=== PATIENT | male | born 1955 | race Caucasian/White ===

== ENCOUNTER → 2016-11-12 | Outpatient (CLI) | payer BC ==
[~2016-11-12] MED LIST: ACTOPLUS MET1 TABLET PO; ASPIR-LOW81 M1 PO; CRESTOR10 MG; FENOFIBRATE200 M1 PO; GLIMEPIRIDE4 MG PO; JANUMET 50/11 TABLET PO; LISINOPRIL10 MG PO; PROAIR RESPICL90 MCG IH; SYMBICORT60 INHALAT IH; TYLENOL EXTRA500 MG PO
[2016-11-12 09:19] LABS: COMMENTS - BLOOD GASES NAC+; FI02 21 %; HEMOGLOBIN 15.8 (12.5-16.6); PCO2 48 mm Hg (35-45); SITE LR; pH 7.39 (7.35-7.45)
[2016-11-12 09:20] LABS: BASE EXCESS 3.1 mEq/L (-3 to +3); BICARBONATE 29.1 mEq/L (22-26); CARBOXY HGB 1.6 % (0-5); PO2 79 mm Hg (80-100)
== END | disposition home or self-care (01) ==
LOC: RES 08:37
PROVIDERS: Thoracic Surgery (Cardiothoracic Vascular Surgery)
DX: J98.8 Other specified respiratory disorders (principal); R94.2 Abnormal results of pulmonary function studies
CPT/HCPCS: 36600; 82803; 94060; 94726; 94729

== ENCOUNTER → 2016-12-09 | Outpatient (CLI) | payer BC ==
[~2016-12-09] VITALS: Ht 175.3 cm; Wt 111.4 kg
[2016-12-09 09:33] LABS: HEMATOCRIT 43.2 % (38.0-50.0); MCH 29.2 PG (29.0-34.0); MCHC 34.7 G/DL (30.0-36.0); MCV 84.2 FL (86-99); MEAN PLAT.VOLUME 11.8 uM^3 (9.0-12.4); PLATELET COUNT 171 K/uL (156-360); RBC DIS.WIDTH-CV 12.3 % (11.8-14.6); RBC DIS.WIDTH-SD 37.4 % (39-53); RED BLOOD COUNT 5.13 M/uL (4.00-5.50); WHITE BLOOD COUNT 5.6 K/uL (4.1-10.2)
[2016-12-09 09:42] LABS: INTER. NORMALIZED RATIO 1.1; PROTHROMBIN TIME 10.7 (9.2-11.2); PTT 26.4 (25-32)
[2016-12-09 09:55] LABS: POINT-OF-CARE METER ID UU14174212
== END | disposition home or self-care (01) ==
LOC: EDSTATUS 11-18 09:00 → OPR 11-18 09:00
PROVIDERS: Radiology Diagnostic Radiology; Thoracic Surgery (Cardiothoracic Vascular Surgery)
PROC: 0BBF3ZX Excision of Right Lower Lung Lobe, Percutaneous Approach, Diagnostic (ICD-10-PCS; principal; 2016-12-09)
DX: C34.31 Malignant neoplasm of lower lobe, right bronchus or lung (principal); J44.9 Chronic obstructive pulmonary disease, unspecified; Z87.891 Personal history of nicotine dependence; E11.9 Type 2 diabetes mellitus without complications; I10 Essential (primary) hypertension; M54.5 Low back pain; F41.1 Generalized anxiety disorder; Z79.82 Long term (current) use of aspirin; Z79.84 Long term (current) use of oral hypoglycemic drugs; Z83.3 Family history of diabetes mellitus; Z82.3 Family history of stroke
CPT/HCPCS: 71010; 77012; 82948; 85027; 85610; 85730; 88305; 88341 TC; 88342 TC; J3010

== ENCOUNTER 2017-01-06 07:20 | Day surgery (SDC) | payer BC ==
[~2017-01-06] VITALS: Ht 175.3 cm; Wt 115.6 kg
[~2017-01-06 07:20] MED LIST changes: +AMARYL4 MG PO; +ASPIRIN81 M2 PO; +CRESTOR10 MG PO
[2017-01-06 07:46] VITALS: BP 130/62
[2017-01-06 08:16] LABS: EOSINOPHIL (%) 1.8 % (0-5); EOSINOPHIL COUNT 0.1 K/uL (0-0.3); HEMATOCRIT 40.2 % (38.0-50.0); IMMATURE GRANULOCYTE (%) 0.5 % (0.0-0.7); INSTRUMENT ABS NEUTROPHIL CT 3.1 K/uL; LYMPHOCYTE COUNT 1.9 K/uL (1.0-2.8); MCH 29.4 PG (29.0-34.0); MCHC 34.8 G/DL (30.0-36.0); MCV 84.3 FL (86-99); MEAN PLAT.VOLUME 12.1 uM^3 (9.0-12.4); MONOCYTE (%) 8.2 % (3-12); MONOCYTE COUNT 0.5 K/uL (0-0.8); NEUTROPHIL (%) 55.3 % (45-76); NEUTROPHIL COUNT 3.1 K/uL (1.8-6.4); PLATELET COUNT 176 K/uL (156-360); RBC DIS.WIDTH-SD 36.4 % (39-53); RED BLOOD COUNT 4.77 M/uL (4.00-5.50); WHITE BLOOD COUNT 5.5 K/uL (4.1-10.2)
[2017-01-06 08:25] LABS: INTER. NORMALIZED RATIO 1.1; PROTHROMBIN TIME 10.8 (9.2-11.2)
[2017-01-06 08:42] LABS: ALKALINE PHOSPHATASE 38 IU/L (3-129); ANION GAP 9 MEQ/L (2-14); CHLORIDE 104 MEQ/L (99-109); GFR ESTIMATE (CALCULATED) > 59 mL/min/; GLUCOSE 258 mg/dL (70-99); POTASSIUM 4.1 MEQ/L (3.7-5.4); SAMPLE HEMOLYSIS CHECK 0; SAMPLE ICTERIC CHECK 0; SAMPLE LIPEMIA CHECK 0; SODIUM 136 MEQ/L (136-147); TOTAL BILIRUBIN 0.4 MG/DL (0.0-1.0); UREA NITROGEN (BUN) 19 mg/dL (9-23)
[2017-01-06 10:47] LABS: POINT-OF-CARE METER ID UU13113675
[2017-01-06 12:10] VITALS: BP 119/83
[2017-01-06 13:21] VITALS: BP 126/61
== END 2017-01-06 13:30 | disposition home or self-care (01) ==
LOC: SDC 07:20
PROVIDERS: Thoracic Surgery (Cardiothoracic Vascular Surgery)
PROC: 07B74ZX Excision of Thorax Lymphatic, Percutaneous Endoscopic Approach, Diagnostic (ICD-10-PCS; principal; 2017-01-06)
DX: C34.31 Malignant neoplasm of lower lobe, right bronchus or lung (principal); Z85.3 Personal history of malignant neoplasm of breast; Z83.3 Family history of diabetes mellitus; Z82.49 Family history of ischemic heart disease and other diseases of the circulatory system; F41.9 Anxiety disorder, unspecified; M51.16 Intervertebral disc disorders with radiculopathy, lumbar region; G96.8 Other specified disorders of central nervous system
CPT/HCPCS: 80053; 82948; 85025; 85610; 86900; 86901; 88305; 94640; 94640 76; J0330; J0690; J1100; J1170; J1885; J2250; J2405; J2710

== ENCOUNTER 2017-02-16 22:31 | Inpatient (IN) | payer BC ==
[~2017-02-16] VITALS: Ht 175.3 cm; Wt 108.7 kg
[~2017-02-16 22:31] MED LIST changes: -AMARYL4 MG PO; +TRULICITY1.5 MG/0.5 SC
[2017-02-17 07:23] VITALS: BP 125/77
[2017-02-17 07:25] LABS: POINT-OF-CARE METER ID UU13113694
[2017-02-17 07:43] LABS: PROTHROMBIN TIME 11.4 SEC (10.2-12.9)
[2017-02-17 12:20] LABS: POINT-OF-CARE METER ID UU13113675
[2017-02-17 14:10] LABS: POINT-OF-CARE METER ID UU13113675
[2017-02-17 16:00] VITALS: BP 92/58
[2017-02-17 17:10] LABS: POINT-OF-CARE METER ID UU13113748
[2017-02-17 18:00] VITALS: BP 102/59
[2017-02-17 20:00] VITALS: BP 96/57
[2017-02-17 22:00] VITALS: BP 98/58
[2017-02-17 22:53] LABS: POINT-OF-CARE METER ID UU13113748; POINT-OF-CARE USER ID PHATLC
[2017-02-18] VITALS (9 sets, daily range): BP systolic 87–131; BP diastolic 52–68
[2017-02-18 06:57] LABS: HEMATOCRIT 38.2 % (38.0-50.0); MCH 28.7 PG (29.0-34.0); MEAN PLAT.VOLUME 12.7 uM^3 (9.0-12.4); RBC DIS.WIDTH-CV 13.1 % (11.8-14.6); RED BLOOD COUNT 4.39 M/uL (4.00-5.50); WHITE BLOOD COUNT 8.8 K/uL (4.1-10.2)
[2017-02-18 07:09] LABS: PLATELET COUNT 134 K/uL (156-360)
[2017-02-18 07:25] LABS: ANION GAP 8 MEQ/L (2-14); CHLORIDE 104 MEQ/L (99-109); GFR ESTIMATE (CALCULATED) > 59 mL/min/; GLUCOSE 281 mg/dL (70-99); POTASSIUM 4.9 MEQ/L (3.7-5.4); SAMPLE HEMOLYSIS CHECK 0; SAMPLE ICTERIC CHECK 0; SAMPLE LIPEMIA CHECK 0; SODIUM 138 MEQ/L (136-147); UREA NITROGEN (BUN) 16 mg/dL (9-23)
[2017-02-18 08:13] LABS: POINT-OF-CARE METER ID UU14208751
[2017-02-18 12:05] LABS: POINT-OF-CARE METER ID UU14208751
[2017-02-18 16:39] LABS: POINT-OF-CARE METER ID UU14162636
[2017-02-18 21:59] LABS: POINT-OF-CARE METER ID UU14208751
[2017-02-19] VITALS (7 sets, daily range): BP systolic 113–145; BP diastolic 59–75
[2017-02-19 05:54] LABS: HEMATOCRIT 35.9 % (38.0-50.0); MCHC 32.3 G/DL (30.0-36.0); MCV 86.7 FL (86-99); MEAN PLAT.VOLUME 12.4 uM^3 (9.0-12.4); PLATELET COUNT 126 K/uL (156-360); RBC DIS.WIDTH-CV 12.8 % (11.8-14.6); RBC DIS.WIDTH-SD 40.6 % (39-53); RED BLOOD COUNT 4.14 M/uL (4.00-5.50); WHITE BLOOD COUNT 9.8 K/uL (4.1-10.2)
[2017-02-19 06:22] LABS: ANION GAP 12 MEQ/L (2-14); CHLORIDE 104 MEQ/L (99-109); GFR ESTIMATE (CALCULATED) > 59 mL/min/; GLUCOSE 221 mg/dL (70-99); POTASSIUM 4.6 MEQ/L (3.7-5.4); SAMPLE HEMOLYSIS CHECK 0; SAMPLE ICTERIC CHECK 0; SAMPLE LIPEMIA CHECK 0; SODIUM 140 MEQ/L (136-147); UREA NITROGEN (BUN) 19 mg/dL (9-23)
[2017-02-19 08:05] LABS: POINT-OF-CARE METER ID UU13113731
[2017-02-19 11:38] LABS: POINT-OF-CARE METER ID UU13113731
[2017-02-19 17:39] LABS: POINT-OF-CARE METER ID UU14174217
[2017-02-19 21:35] LABS: POINT-OF-CARE METER ID UU14174217
[2017-02-20] VITALS (13 sets, daily range): BP systolic 83–129; BP diastolic 50–73
[2017-02-20 06:12] LABS: EOSINOPHIL (%) 0.8 % (0-5); EOSINOPHIL COUNT 0.1 K/uL (0-0.3); HEMATOCRIT 35.7 % (38.0-50.0); IMMATURE GRANULOCYTE (%) 0.9 % (0.0-0.7); IMMATURE GRANULOCYTE COUNT 0.1 K/uL; INSTRUMENT ABS NEUTROPHIL CT 6.5 K/uL; LYMPHOCYTE COUNT 1.4 K/uL (1.0-2.8); MCH 28.7 PG (29.0-34.0); MCHC 32.8 G/DL (30.0-36.0); MCV 87.5 FL (86-99); MEAN PLAT.VOLUME 12.4 uM^3 (9.0-12.4); MONOCYTE (%) 9.1 % (3-12); MONOCYTE COUNT 0.8 K/uL (0-0.8); NEUTROPHIL (%) 73.2 % (45-76); NEUTROPHIL COUNT 6.5 K/uL (1.8-6.4); PLATELET COUNT 135 K/uL (156-360); RBC DIS.WIDTH-CV 12.8 % (11.8-14.6); RBC DIS.WIDTH-SD 41.4 % (39-53); RED BLOOD COUNT 4.08 M/uL (4.00-5.50); WHITE BLOOD COUNT 8.8 K/uL (4.1-10.2)
[2017-02-20 06:41] LABS: ANION GAP 7 MEQ/L (2-14); CHLORIDE 101 MEQ/L (99-109); GFR ESTIMATE (CALCULATED) > 59 mL/min/; GLUCOSE 195 mg/dL (70-99); POTASSIUM 4.7 MEQ/L (3.7-5.4); SAMPLE HEMOLYSIS CHECK 0; SAMPLE ICTERIC CHECK 0; SAMPLE LIPEMIA CHECK 0; SODIUM 139 MEQ/L (136-147); UREA NITROGEN (BUN) 21 mg/dL (9-23)
[2017-02-20 08:40] LABS: POINT-OF-CARE METER ID UU13113731; POINT-OF-CARE USER ID AGYTJR
[2017-02-20 12:33] LABS: POINT-OF-CARE METER ID UU13113731; POINT-OF-CARE USER ID AGYTJR
[2017-02-20 18:08] LABS: POINT-OF-CARE METER ID UU13113731; POINT-OF-CARE USER ID AGYTJR
[2017-02-20 22:45] LABS: POINT-OF-CARE METER ID UU13113731
[2017-02-21] VITALS (12 sets, daily range): BP systolic 96–136; BP diastolic 51–73
[2017-02-21 08:32] LABS: POINT-OF-CARE METER ID UU13113748; POINT-OF-CARE USER ID AGYTJR
[2017-02-21 13:17] LABS: POINT-OF-CARE METER ID UU14162636; POINT-OF-CARE USER ID AGYTJR
[2017-02-21 17:41] LABS: POINT-OF-CARE METER ID UU14174217; POINT-OF-CARE USER ID AGYTJR
[2017-02-21 20:55] LABS: POINT-OF-CARE METER ID UU14162636
[2017-02-22] VITALS (8 sets, daily range): BP systolic 99–124; BP diastolic 55–70
[2017-02-22 08:16] LABS: POINT-OF-CARE METER ID UU13113731
[2017-02-22 12:13] LABS: POINT-OF-CARE METER ID UU13113731
[2017-02-22 17:52] LABS: POINT-OF-CARE METER ID UU14174217
[2017-02-22 20:35] LABS: POINT-OF-CARE METER ID UU13113731; POINT-OF-CARE USER ID PHATLC
[2017-02-22 23:25] LABS: POINT-OF-CARE METER ID UU14174217; POINT-OF-CARE USER ID PHATLC
[2017-02-23] VITALS: BP 111/58
[2017-02-23 04:00] VITALS: BP 107/61
[2017-02-23 05:39] LABS: HEMATOCRIT 34.8 % (38.0-50.0); MCH 27.5 PG (29.0-34.0); MCHC 31.9 G/DL (30.0-36.0); MCV 86.4 FL (86-99); MEAN PLAT.VOLUME 11.8 uM^3 (9.0-12.4); RBC DIS.WIDTH-CV 12.5 % (11.8-14.6); RBC DIS.WIDTH-SD 39.8 % (39-53); RED BLOOD COUNT 4.03 M/uL (4.00-5.50); WHITE BLOOD COUNT 6.9 K/uL (4.1-10.2)
[2017-02-23 05:40] LABS: PLATELET COUNT 233 K/uL (156-360)
[2017-02-23 05:56] LABS: ANION GAP 8 MEQ/L (2-14); CHLORIDE 101 MEQ/L (99-109); GFR ESTIMATE (CALCULATED) > 59 mL/min/; GLUCOSE 175 mg/dL (70-99); POTASSIUM 4.3 MEQ/L (3.7-5.4); SAMPLE HEMOLYSIS CHECK 0; SAMPLE ICTERIC CHECK 0; SAMPLE LIPEMIA CHECK 0; SODIUM 139 MEQ/L (136-147); UREA NITROGEN (BUN) 16 mg/dL (9-23)
[2017-02-23 08:30] VITALS: BP 120/72
[2017-02-23] MEDS ORDERED: DIGOXIN250 MCG PO (11:34)
[2017-02-23] MEDS ORDERED: DOCUSATE SODIU100 MG PO (11:34)
[2017-02-23] MEDS ORDERED: ENDOCET 5-3251 EACH PO (11:34)
[2017-02-23] MEDS ORDERED: METOPROLOL SUCC50 MG PO (11:39)
[2017-02-23 12:30] VITALS: BP 119/54
[2017-02-23 12:37] LABS: POINT-OF-CARE METER ID UU13113731
== END 2017-02-23 16:39 | disposition home or self-care (01) | DRG 165 ==
LOC: ENRESERV 22:31 → 4WEST 02-17 06:29 → 2SOUTH 02-17 06:29 → ENRESERV 02-17 12:46 → 2SOUTH 02-17 13:26 → 4WEST 02-17 15:12
PROVIDERS: Family Medicine Sports Medicine; Thoracic Surgery (Cardiothoracic Vascular Surgery)
PROC: 0BTF0ZZ Resection of Right Lower Lung Lobe, Open Approach (ICD-10-PCS; principal; 2017-02-17)
DX: C34.31 Malignant neoplasm of lower lobe, right bronchus or lung (principal); I10 Essential (primary) hypertension; J44.9 Chronic obstructive pulmonary disease, unspecified; E11.9 Type 2 diabetes mellitus without complications; I25.10 Atherosclerotic heart disease of native coronary artery without angina pectoris; E78.5 Hyperlipidemia, unspecified; Z87.891 Personal history of nicotine dependence; Z68.37 Body mass index [BMI] 37.0-37.9, adult; Z90.49 Acquired absence of other specified parts of digestive tract
CPT/HCPCS: 71010; 71020; 80048; 82948; 85025; 85027; 85610; 86900; 86901; 86920; 87641; 88300; 88305; 88309; 94010; 94640; 94640 76; 94760; 94799; 97530 GO; 99202; J0171; J0330; J0690; J1100; J1160; J1170; J1200; J1644; J1815; J1885; J2250; J2405; J2710; J3010; J7050; J7120; S0020

== ENCOUNTER → 2017-08-02 | Outpatient (CLI) | payer BC, OTHER ==
[~2017-08-02] MED LIST changes: +DIGOXIN250 MCG PO; +DOCUSATE SODIU100 MG PO; +ENDOCET 5-3251 EACH PO; +METOPROLOL SUCC50 MG PO
== END | disposition home or self-care (01) ==
LOC: CDC 08:53
DX: Z01.810 Encounter for preprocedural cardiovascular examination (principal); R91.8 Other nonspecific abnormal finding of lung field; C34.90 Malignant neoplasm of unspecified part of unspecified bronchus or lung
CPT/HCPCS: 93000

== ENCOUNTER 2017-08-11 10:13 | Day surgery (SDC) | payer BC, OTHER ==
[~2017-08-11] VITALS: Ht 175.3 cm; Wt 101.2 kg
[~2017-08-11 10:13] MED LIST changes: +LANTUS 3 M100 UNITS1 SC
[2017-08-11 10:53] VITALS: BP 124/68
[2017-08-11 13:23] VITALS: BP 119/72
[2017-08-11 14:20] VITALS: BP 111/57
== END 2017-08-11 14:20 | disposition home or self-care (01) ==
LOC: SDC 10:13
PROVIDERS: Thoracic Surgery (Cardiothoracic Vascular Surgery)
PROC: 0BB88ZX Excision of Left Upper Lobe Bronchus, Via Natural or Artificial Opening Endoscopic, Diagnostic (ICD-10-PCS; principal; 2017-08-11)
PROC: 0B9G8ZX Drainage of Left Upper Lung Lobe, Via Natural or Artificial Opening Endoscopic, Diagnostic (ICD-10-PCS; principal; 2017-08-11)
DX: C34.12 Malignant neoplasm of upper lobe, left bronchus or lung (principal); I25.10 Atherosclerotic heart disease of native coronary artery without angina pectoris; J44.9 Chronic obstructive pulmonary disease, unspecified; E11.9 Type 2 diabetes mellitus without complications; I10 Essential (primary) hypertension; E78.5 Hyperlipidemia, unspecified; Z87.891 Personal history of nicotine dependence; Z79.82 Long term (current) use of aspirin; Z79.4 Long term (current) use of insulin
CPT/HCPCS: 82948; 86850; 86900; 86901; 88108; 88305; 88341 TC; 88342 TC; J0171; J0690; J2250; J2405; J3010

== ENCOUNTER → 2017-08-26 | Outpatient (CLI) | payer BC, OTHER ==
[2017-08-26 09:29] LABS: BASE EXCESS 1.7 mEq/L (-3 to +3); BICARBONATE 25.8 mEq/L (22-26); CARBOXY HGB 1.4 % (0-5); COMMENTS - BLOOD GASES A+C+; METHEMOGLOBIN 0.9 % (0-1.5); PCO2 38 mm Hg (35-45); PO2 79 mm Hg (80-100); SITE LR; TOTAL RESP RATE 18 resp/min; pH 7.44 (7.35-7.45)
== END | disposition home or self-care (01) ==
LOC: RES 09:03
PROVIDERS: Thoracic Surgery (Cardiothoracic Vascular Surgery)
DX: J98.8 Other specified respiratory disorders (principal); J98.4 Other disorders of lung; R91.8 Other nonspecific abnormal finding of lung field; C34.90 Malignant neoplasm of unspecified part of unspecified bronchus or lung
CPT/HCPCS: 36600; 82803; 94060; 94726; 94729

== ENCOUNTER → 2017-12-06 | Outpatient (CLI) | payer BC, OTHER | END | disposition home or self-care (01) | LOC: RAD 08:11 | DX: J98.11 Atelectasis (principal) | CPT/HCPCS: 71260 ==